=== PATIENT | male | born 1975 | race Caucasian/White ===

== ENCOUNTER 2018-05-06 07:48 | Day surgery (SDC) | payer BC ==
[2018-05-06] MEDS ORDERED: Sodium Chloride 0.9% 10 ML Syringe FLUSH PRN (08:03)
[2018-05-06] MEDS ORDERED: HYDROmorphone 0.5 MG/0.5 ML SYRINGE IVPUSH ONE ×2 (08:03→09:43)
[2018-05-06] MEDS: Lactated Ringers 1,000 ML IV SCH ×2 (08:12→11:41)
[2018-05-06] MEDS ORDERED: Ketorolac 30 MG/ML SDV IVPUSH PRN (10:19)
[2018-05-06] MEDS ORDERED: Acetaminophen/oxyCODONE 325-5 MG Tab PO PRN (10:19)
[2018-05-06] MEDS ORDERED: Ondansetron 4 MG/2 ML SDV IVPUSH PRN ×2 (10:19→11:29)
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
--- NOTE | 2018-05-06 10:26 | PCM.PREANE ---
Preanesthetic Assessment - Procedure Proposed Procedure: Closed reduction right wrist fracture - Anesthesia/Transfusion/Family Hx Anesthesia History: No Prior Anesthesia Family History of Anesthesia Reaction: No Transfusion History: No Prior Transfusion(s) - Review of Systems General: No Symptoms Pulmonary: No Symptoms Cardiovascular: No Symptoms, Other (hyperlipidemia) Gastrointestinal: Other (Occ GERD ) Neurological: No Symptoms Other: Reports: None - Physical Assessment NPO Status Date: 05/05/18 NPO Status Time: 20:00 O2 Sat by Pulse Oximetry: 100 Respiratory Rate: 18 Vital Signs: Last Vital Signs Temp 36.8 C 05/06/18 07:56 Pulse 63 05/06/18 07:56 Resp 18 05/06/18 07:56 BP 135/81 05/06/18 07:56 Pulse Ox 100 05/06/18 07:56 Height: 1.8 m Weight: 89.811 kg ASA Class: 2E Mental Status: Alert & Oriented x3 Airway Class: Mallampati = 1 Dentition: Reports: Normal Dentition Thyro-Mental Finger Breadths: 3 Mouth Opening Finger Breadths: 3 ROM/Head Extension: Full Lungs: Clear to Auscultation, Normal Respiratory Effort Cardiovascular: Regular Rate, Regular Rhythm - Allergies Allergies/Adverse Reactions: Allergies Allergy/AdvReac Type Severity Reaction Status Date / Time No Known Allergies Allergy Verified 05/06/18 08:14 - Blood Blood Available: No Product(s) Available: None - Anesthesia Plan Pre-Op Medication Ordered: None - Acknowledgements Anesthesia Type Planned: General Anesthesia Pt an Appropriate Candidate for the Planned Anesthesia: Yes Alternatives and Risks of Anesthesia Discussed w Pt/Guardian: Yes Pt/Guardian Understands and Agrees with Anesthesia Plan: Yes PreAnesthesia Questionnaire - SUBSTANCE USE Smoking Status *Q: Never Smoker - CURRENT (IN HOUSE) MEDS Current Meds: Current Medications Lactated Ringer's (Ringers, Lactated) 1,000 mls @ 100 mls/hr IV ASDIRECTED [facility] Last Admin: 05/06/18 08:12 Dose: 100 mls/hr Ketorolac Tromethamine (Toradol) 30 mg IVPUSH Q6H PRN PRN Reason: Pain (severe 7-10) Morphine Sulfate (Ms Contin) 15 mg PO ONETIME YOVANA Ondansetron HCl (Zofran) 4 mg IVPUSH Q4H PRN PRN Reason: Nausea/Vomiting Oxycodone/Acetaminophen (Percocet 325-5 Mg) 1 - 2 tab PO Q4H PRN PRN Reason: Pain (severe 7-10) Sodium Chloride (Saline Flush) 10 ml FLUSH ASDIRECTED PRN PRN Reason: Keep Vein Open Last Admin: 05/06/18 08:13 Dose: 10 ml Discontinued Medications Hydromorphone HCl (Dilaudid) 0.5 mg IVPUSH ONETIME ONE Stop: 05/06/18 08:04 Last Admin: 05/06/18 08:13 Dose: 0.5 mg Hydromorphone HCl (Dilaudid) 0.5 mg IVPUSH ONETIME ONE Stop: 05/06/18 09:44 Last Admin: 05/06/18 09:47 Dose: 0.5 mg
[2018-05-06] MEDS ORDERED: Morphine 15 MG Tab.ER PO SCH (10:30)
[2018-05-06] MEDS ORDERED: fentaNYL 250 MCG/5 ML SDV ONE (10:33)
[2018-05-06] MEDS ORDERED: Propofol 200 MG/20 ML SDV ONE (10:33)
[2018-05-06] MEDS ORDERED: Midazolam 1 MG/ML 2 ML SDV ONE (10:33)
[2018-05-06] MEDS ORDERED: Lidocaine 1% 4 ML ONE (10:34)
[2018-05-06] MEDS ORDERED: Dexamethasone 4 MG/ML SDV ONE (10:34)
[2018-05-06] MEDS ORDERED: Ondansetron 4 MG/2 ML SDV ONE (10:34)
[2018-05-06] MEDS ORDERED: HYDROmorphone 0.5 MG/0.5 ML Syringe IVPUSH ONE (11:29)
[2018-05-06] MEDS ORDERED: Meperidine PF 50 MG/ML Syringe IVPUSH PRN (11:29)
[2018-05-06] MEDS ORDERED: diphenhydrAMINE 50 MG/ML SDV IVPUSH PRN (11:29)
[2018-05-06] MEDS ORDERED: fentaNYL 100 MCG/2 ML SDV IVPUSH PRN (11:29)
--- NOTE | 2018-05-06 11:29 | PCM.POSTAN ---
POST ANESTHESIA ASSESSMENT - MENTAL STATUS Mental Status: Somnolent - VITAL SIGNS Pulse Rate: 70 SaO2: 96 Resp Rate: 11 Blood Pressure: 112/64 Temperature: 36.7 C - RESPIRATORY Respiratory Status: Respiratory Rate WNL, Airway Patent, O2 Saturation Stable, Supplemental Oxygen - CARDIOVASCULAR CV Status: Pulse Rate WNL - GASTROINTESTINAL GI Status: No Symptoms - PAIN Pain Score: 0 - POST OP HYDRATION Hydration Status: Adequate & Stable
--- NOTE | 2018-05-06 12:24 | PCM48HPAN ---
Post Anesthesia Note - EVALUATION WITHIN 48HRS OF ANESTHETIC Vital Signs in Normal Range: Yes Patient Participated in Evaluation: Yes Respiratory Function Stable: Yes Airway Patent: Yes Cardiovascular Function Stable: Yes Hydration Status Stable: Yes Pain Control Satisfactory: Yes Nausea and Vomiting Control Satisfactory: Yes Mental Status Recovered: Yes
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
--- NOTE | 2018-05-08 07:49 | CR ---
Right wrist: Five views of the right wrist are obtained utilizing C-arm device. Comparison: Previous right forearm study performed earlier on the same day (8:10 AM). Previous dislocated distal right radial fracture shows evidence of reduction. Alignment is very close to anatomic. Ulnar styloid avulsion fracture is noted. Final films shows fiberglass cast in place. Fluoroscopy time given as 10.6 seconds. Impression: 1. Reduction of previous fracture with placement of fiberglass cast. Diagnostic code #2
--- NOTE | 2018-05-08 07:49 | CR ---
Right forearm: Two views of the right forearm were obtained. Comparison: No prior wrist or forearm study. Displaced distal radial fracture is seen. Distal portion of the fracture fragment is displaced by almost a shaft width posteriorly. Well-corticated bony density noted off the distal ulna which likely represents an old injury. Diffuse soft tissue swelling is seen. Old healed fracture is noted within the distal right fifth metacarpal. Impression: 1. Significantly displaced distal radial fracture with distal fragment being displaced posteriorly by almost a shaft width. 2. Soft tissue swelling and other incidental findings. Diagnostic code #3
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
--- NOTE | 2018-05-08 08:55 | OR ---
DATE OF OPERATION: 05/06/2018 SURGEON: Avelino Gabriel MD PREOPERATIVE DIAGNOSIS: Completely displaced distal radius ulna fracture, right wrist. POSTOPERATIVE DIAGNOSIS: Completely displaced distal radius ulna fracture, right wrist. ANESTHESIA: General. OPERATION PERFORMED: Closed reduction of distal right radius ulna fracture, application of short-arm cast. DESCRIPTION OF PROCEDURE: The patient was taken to the operative room in supine position and placed under a general anesthesia. After adequate anesthesia, the right hand and fingers were placed in a fingertrap traction unit. The weight to the upper arm was applied and gradually increased to 15 pounds. At that level, the separation of the fracture fragments was to the point where a gentle manipulation was carried out. The fracture slid back quite nicely onto the end of the proximal portion of the radius, distal to proximal. Once that was in place, it was molded and moved to almost anatomic position. Fluoroscopy was used all through the procedure. The fluoroscopic initial stable reduction found this to be very satisfactory. Operation then proceeded with application of a short-arm cast and then the final hard copy x-rays were taken, which again were found to be very satisfactory. The patient tolerated the whole procedure well. He left the operating room in stable condition to his room for recovery. ESTIMATED BLOOD LOSS: MMODAL /[id number]
== END 2018-05-06 12:30 | disposition home or self-care (01) ==
LOC: JD.ED 07:48 → JD.SDS 10:02
PROVIDERS: ATTEND Specialist
DX: S52.601A Unspecified fracture of lower end of right ulna, initial encounter for closed fracture (principal); S52.501A Unspecified fracture of the lower end of right radius, initial encounter for closed fracture; E78.00 Pure hypercholesterolemia, unspecified; K21.9 Gastro-esophageal reflux disease without esophagitis; Z79.899 Other long term (current) drug therapy; W01.0XXA Fall on same level from slipping, tripping and stumbling without subsequent striking against object, initial encounter
CPT/HCPCS: 25605; 73090; 76000; 96361; 96374; 96376; 99285; A9270; J1100; J1170; J2001; J2250; J2405; J3010; J7050; J7120; 01820; 99284; J2704

== ENCOUNTER 2019-10-09 07:34 | Emergency (ER) | payer OTHER, BC ==
[2019-10-09] MEDS ORDERED: Cephalexin 500 MG Cap PO ONE (09:08)
--- NOTE | 2019-10-09 09:14 | EDM.PDOC ---
ED HPI GENERAL MEDICAL PROBLEM - General Chief Complaint: Upper Extremity Injury/Pain Stated Complaint: RT PINKY FINGER INJURY Time Seen by Provider: 10/09/19 08:00 Source of Information: Reports: Patient, RN Notes Reviewed - History of Present Illness INITIAL COMMENTS - FREE TEXT/NARRATIVE: 44-year-old male comes in with right small finger injury. This actually happened late yesterday afternoon at work. 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 There was a small laceration associated with this injury. there was some bleeding last evening but it was controllable. Then when his finger started bleeding again this morning he decided he should have it checked out. There is moderate localized pain is well distal finger no other pain or injury from this incident. Last tetanus immunization about 3 years ago. - Related Data Allergies Allergy/AdvReac Type Severity Reaction Status Date / Time No Known Allergies Allergy Verified 10/09/19 07:54 Home Meds: Home Meds Cephalexin [Keflex] 500 mg PO Q6HR #20 capsule 10/09/19 [Rx] Omeprazole Magnesium [Prilosec Otc] 20 mg PO DAILY 10/09/19 [History] Social & Family History - Tobacco Use Smoking Status *Q: Never Smoker - Recreational Drug Use Recreational Drug Use: No Review of Systems - Review of Systems Review Of Systems: See Below Constitutional: Reports: No Symptoms Mouth/Throat: Reports: No Symptoms Respiratory: Reports: No Symptoms Cardiovascular: Denies: Chest Pain GI/Abdominal: Denies: Nausea, Vomiting Musculoskeletal: Reports: Other (Right small finger injury) Neurological: Denies: Numbness, Tingling ED EXAM, GENERAL - Physical Exam Exam: See Below General Appearance: Alert, No Apparent Distress Head: Atraumatic Respiratory/Chest: No Respiratory Distress Extremities: Other (there is mild swelling and tenderness of distal R small finger, small laceration, nongaping radial aspect of distal finger) Course - Vital Signs Last Recorded V/S: Last Vital Signs Temp 97.4 F 10/09/19 07:52 Pulse 77 10/09/19 07:52 Resp 16 10/09/19 07:52 BP 139/85 10/09/19 07:52 Pulse Ox 100 10/09/19 07:52 - Orders/Labs/Meds Meds: Medications Discontinued Medications Generic Name Dose Route Start Last Admin Trade Name Garrett PRN Reason Stop Dose Admin Cephalexin 500 mg 10/09/19 09:08 10/09/19 09:21 Keflex PO 10/09/19 09:09 500 mg ONETIME ONE Administration - Re-Assessments/Exams Free Text/Narrative Re-Assessment/Exam: 10/09/19 17:46 X-rays do show fracture of distal phalanx, minimal displacement. he does have a very small laceration radial aspect of finger is non-gaping, not actively bleeding. Because it has now been about 16 hours from time of injury this will not suture. Pressure dressing was applied. Started on cephalexin 500 mg 4 times a day for 5 days. Protective metal splint also applied, discharge instructions as documented. Departure - Departure Time of Disposition: 09:12 Disposition: Home, Self-Care 01 Clinical Impression: Fracture, finger, open Qualifiers: Encounter type: initial encounter Finger: little finger Phalanx: distal Fracture alignment: nondisplaced Laterality: right Qualified Code(s): S62.666B - Nondisplaced fracture of distal phalanx of right little finger, initial encounter for open fracture - Discharge Information Prescriptions: Cephalexin [Keflex] 500 mg PO Q6HR #20 capsule Referrals: Issac Fowler MD [Primary Care Provider] - Forms: ED Department Discharge Additional Instructions: Keep finger wrapped and protected while at work as discussed. You can leave the current dressing on for 2 days if you are able to keep that dry and relatively clean. Than change dressing once or twice daily until that is healed up. Continue to keep protected when at work. The finger fracture will take 3-4 weeks to heal completely. Cephalexin antibiotic 500 mg 4 times daily for 5 days or until gone. Prescription has been sent electronically to [facility]. Have finger rechecked any sign of infection. Advil or ibuprofen as needed for pain.
--- NOTE | 2019-10-09 09:45 | CR ---
Right 5th finger: Four views of the right 5th finger were obtained. Comparison: No prior finger or hand exam is available. Tuft fracture is identified within the distal right 5th finger. Minimal displacement is seen. Soft tissue swelling is present. Mild deformity of the distal 5th metacarpal is seen compatible with old healed fracture. No additional fracture or other bony abnormality is seen. Impression: 1. Tuft fracture with soft tissue swelling. 2. Old deformity from healed distal 5th metacarpal fracture. Diagnostic code #3 This report was dictated in [place] Standard Time
== END 2019-10-09 09:29 | disposition home or self-care (01) ==
LOC: JD.ED 07:34
DX: S62.666B Nondisplaced fracture of distal phalanx of right little finger, initial encounter for open fracture (principal); W20.8XXA Other cause of strike by thrown, projected or falling object, initial encounter; Y92.89 Other specified places as the place of occurrence of the external cause; Y99.0 Civilian activity done for income or pay
CPT/HCPCS: 73140; 99283; A9270